=== PATIENT | female | born 1960 | race Native Hawaiian/Other Pacific Islander ===

== ENCOUNTER 2020-12-10 11:08 | Emergency (ER) | payer BC ==
[~2020-12-10] VITALS: Ht 160 cm; Wt 64.6 kg
[2020-12-10] MEDS ORDERED: LISINOPRIL (11:32)
[2020-12-10] MEDS ORDERED: ASPIRIN 81 MG CHEW (CHILDREN'S ASA) PO ONE (11:45)
[2020-12-10] MEDS ORDERED: NS IV 1000 ML 1,000 ML IV SCH (11:45)
--- NOTE | 2020-12-10 11:49 | ED Syncope ---
General Chief Complaint: Neurological Problems Stated Complaint: WEAKNESS Nursing Triage Note: ARRIVED VIA AMB TO ROOM 06 WITH COMPLAINTS OF GENERALIZED WEAKNESS STARTING IN aug. STATES SHE HAS LOST OVER 30# SINCE THEN AND HAS NOT BEEN TRYING. STATES SHE HAS BEEN TO HER DR AND HE TELLS HER TO TAKE ASA. Source of Information: Patient Exam Limitations: No Limitations History of Present Illness Date Seen by Provider: December 10, 2020 Time Seen by Provider: 11:26 Initial Comments Patient presents ER by private conveyance with a friend and chief complaint for the last couple months having some sinking episodes where she did not quite pass out but she just felt incredibly weak and had to stop working and go home and lay down. She is having any chest pain but she does claim that she gets short of breath. She does not have a history of lung disease but she does smoke over a pack of cigarettes per day. She has a family history of coronary disease but none personally. She follows with a primary care doctor in [place] and status was not given any work-up or labs when she brought this up to have instead told to just take Tylenol. She also complains for the past years been having some generalized weakness and near syncopal episodes off and on although not as frequent or pronounced as recently. She states she has had a 30 pound weight loss without trying over the past couple months. She is also been experiencing more low back pain and left arm numbness tingling and weakness with difficulty getting her left arm above the plane of her shoulder without help. She says an MRI was done on her back which demonstrated a thin disc. She is not having any significant pain right now. Allergies and Home Medications Allergies Coded Allergies: No Known Drug Allergies (Unverified , 12/10/20) Patient Home Medication List Home Medication List Reviewed: Yes Review of Systems Constitutional: No chills, No diaphoresis EENTM: No ear discharge, No ear pain Respiratory: No cough, No phlegm; short of breath; No wheezing Cardiovascular: see HPI; No chest pain, No edema, No Hx of Intervention, No palpitations; syncope Gastrointestinal: No abdominal pain, No constipation, No diarrhea, No nausea, No vomiting Genitourinary: No dysuria : No Control/STD Prophylaxis: None Musculoskeletal: No back pain, No joint pain Skin: No pruritus, No rash Psychiatric/Neurological: Denies Anxiety, Denies Depressed All Other Systems Reviewed Negative Unless Noted: Yes Past Jajlish-Lmfqbn-Dvysxm Hx Patient Social History Alcohol Use: Occasionally Uses Smoking Status: Current Everyday Smoker Recent Infectious Disease Expo: No Recent Hopitalizations: No Seasonal Allergies Seasonal Allergies: No Past Medical History Section Respiratory: No Cardiac: Yes Hypertension Neurological: No Genitourinary: No Gastrointestinal: No Musculoskeletal: No Endocrine: No HEENT: No Cancer: No Psychosocial: No Integumentary: No Physical Exam Vital Signs Vital Signs - First Documented 12/10/20 11:10 Temp 36.1 Pulse 65 Resp 16 B/P (MAP) 130/100 (110) Pulse Ox 100 O2 Delivery Room Air Capillary Refill : Less Than 3 Seconds Height, Weight, BMI Height: '" Weight: lbs. oz. kg; 25.00 BMI Method: General Appearance: No Apparent Distress, WD/WN HEENT: PERRL/EOMI, Pharynx Normal; No Moist Mucous Membranes Neck: Full Range of Motion, Normal Inspection Cardiovascular: Regular Rate, Rhythm, No Murmur, Normal Peripheral Pulses Respiratory: Lungs Clear, Normal Breath Sounds, No Accessory Muscle Use, No Respiratory Distress Gastrointestinal: Normal Bowel Sounds, No Organomegaly, Non Tender, Soft Extremities: Normal Capillary Refill, Normal Inspection, Non Tender, No Pedal Edema Neurologic/Psychiatric: Alert, Oriented x3, Normal Mood/Affect, circuit clerk II-XII Norm as Tested, Motor Weakness (Left upper extremity muscles 4 out of 5 motor strength to abduction flexion and rotation. 5 out of 5 right upper extremity motor strength) Cranial Nerves: Normal Hearing, Normal Speech, PERRL Coordination/Gait: Normal Gait Motor/Sensory: No Motor Deficit, No Sensory Deficit Reflexes: 2+ Bicep (R) (Brachioradialis bilateral), 2+ Bicep (L) (Radialis bilateral), 2+ Knee (R), 2+ Knee (L) Skin: Normal Color, Warm/Dry Progress/Results/Core Measures Results/Orders Lab Results Laboratory Tests Test 12/10/20 12:00 12/10/20 12:38 Range/Units White Blood Count 11.2 H 4.3-11.0 10^3/uL Red Blood Count 4.54 3.80-5.11 10^6/uL Hemoglobin 14.0 11.5-16.0 g/dL Hematocrit 42 35-52 % Mean Corpuscular Volume 92 80-99 fL Mean Corpuscular Hemoglobin 31 25-34 pg Mean Corpuscular Hemoglobin Concent 33 32-36 g/dL Red Cell Distribution Width 14.1 10.0-14.5 % Platelet Count 192 130-400 10^3/uL Mean Platelet Volume 11.5 9.0-12.2 fL Immature Granulocyte % (Auto) 1 % Neutrophils (%) (Auto) 57 42-75 % Lymphocytes (%) (Auto) 32 12-44 % Monocytes (%) (Auto) 7 0-12 % Eosinophils (%) (Auto) 3 0-10 % Basophils (%) (Auto) 1 0-10 % Neutrophils # (Auto) 6.3 1.8-7.8 10^3/uL Lymphocytes # (Auto) 3.5 1.0-4.0 10^3/uL Monocytes # (Auto) 0.8 0.0-1.0 10^3/uL Eosinophils # (Auto) 0.4 H 0.0-0.3 10^3/uL Basophils # (Auto) 0.1 0.0-0.1 10^3/uL Immature Granulocyte # (Auto) 0.1 0.0-0.1 10^3/uL Prothrombin Time 13.2 12.2-14.7 SEC INR Comment 1.0 0.8-1.4 Activated Partial Thromboplast Time 37 H 24-35 SEC D-Dimer 0.35 0.00-0.49 UG/ML Sodium Level 140 135-145 MMOL/L Potassium Level 4.2 3.6-5.0 MMOL/L Chloride Level 105 98-107 MMOL/L Carbon Dioxide Level 23 21-32 MMOL/L Anion Gap 12 5-14 MMOL/L Blood Urea Nitrogen 24 H 7-18 MG/DL Creatinine 1.05 0.60-1.30 MG/DL Estimat Glomerular Filtration Rate 53 BUN/Creatinine Ratio 23 Glucose Level 115 H 70-105 MG/DL Calcium Level 9.8 8.5-10.1 MG/DL Corrected Calcium 9.6 8.5-10.1 MG/DL Magnesium Level 2.0 1.6-2.4 MG/DL Total Bilirubin 0.2 0.1-1.0 MG/DL Aspartate Amino Transf (AST/SGOT) 21 5-34 U/L Alanine Aminotransferase (ALT/SGPT) 13 0-55 U/L Alkaline Phosphatase 70 40-136 U/L Myoglobin 42.9 10.0-92.0 NG/ML Troponin I < 0.028 <0.028 NG/ML B-Type Natriuretic Peptide < 10.0 <100.0 PG/ML Total Protein 7.6 6.4-8.2 GM/DL Albumin 4.2 3.2-4.5 GM/DL Urine Color YELLOW Urine Clarity CLEAR Urine pH 6.0 5-9 Urine Specific Alvin 1.025 H 1.016-1.022 Urine Protein NEGATIVE NEGATIVE Urine Glucose (UA) NEGATIVE NEGATIVE Urine Ketones NEGATIVE NEGATIVE Urine Nitrite NEGATIVE NEGATIVE Urine Bilirubin NEGATIVE NEGATIVE Urine Urobilinogen 0.2 < = 1.0 MG/DL Urine Leukocyte Esterase 1+ H NEGATIVE Urine RBC (Auto) TRACE-I NEGATIVE Urine RBC 0-2 /HPF Urine WBC 2-5 /HPF Urine Squamous Epithelial Cells 2-5 /HPF Urine Crystals NONE /LPF Urine Bacteria FEW H /HPF Urine Casts NONE /LPF Urine Mucus NEGATIVE /LPF Urine Culture Indicated YES My Orders Orders - GERRY CASTILLO Ua Culture If Indicated (12/10/20 11:25) Chest Pa/Lat (2 View) (12/10/20 11:39) Ed Iv/Invasive Line Start (12/10/20 11:39) Ns Iv 1000 Ml (Sodium Chloride 0.9%) (12/10/20 11:45) Cbc With Automated Diff (12/10/20 11:39) Magnesium (12/10/20 11:39) Ekg Tracing (12/10/20 11:39) Comprehensive Metabolic Panel (12/10/20 11:39) Myoglobin Serum (12/10/20 11:39) Protime With Inr (12/10/20 11:39) Partial Thromboplastin Time (12/10/20 11:39) O2 (12/10/20 11:39) Monitor-Rhythm Ecg Trace Only (12/10/20 11:39) Ed Iv/Invasive Line Start (12/10/20 11:39) BNP (12/10/20 11:39) Fibrin Degradation Products (12/10/20 11:39) Troponin I (12/10/20 11:39) Aspirin Chewable Tablet (Baby Aspirin Ch (12/10/20 11:45) Orthostatic Vital Signs (Adult (12/10/20 11:39) Urine Culture (12/10/20 12:38) Medications Given in ED Current Medications Medications Dose Ordered Sig/Coleen Route Start Time Stop Time Status Last Admin Dose Admin Aspirin 324 mg ONCE ONCE PO 12/10/20 11:45 12/10/20 11:46 DC 12/10/20 11:56 324 MG Vital Signs/I&O 12/10/20 12/10/20 12/10/20 11:10 12:30 14:09 Temp 36.1 Pulse 65 59 104 61 67 Resp 16 16 B/P (MAP) 130/100 (110) 128/81 (97) 145/87 125/84 (98) 138/83 (101) Pulse Ox 100 98 O2 Delivery Room Air Room Air Blood Pressure Mean: 110 Progress Progress Note #1: Time: 11:51 Progress Note Plan to do a syncopal work-up and we can refer her to an orthopedic surgeon, Dr. Farr for her motor deficit likely related to a cervical radiculopathy in her left arm. With her heavy history of smoking, weight loss and shortness of air a lung cancer made even a pulmonary embolism is a possibility. Atypical angina is also a possibility so we did troponin give her some aspirin as well as EKG and a D-dimer. Progress Note #2: Time: 12:55 Progress Note Riley syncope risk score 0 points. Low risk; 1.9% risk of 30-day serious adverse event. She had no syncopal events while she was here. Her orthostatic vital signs were normal. Plan to have her follow-up outpatient with cardiology to explore possibility of cardiac origin for her symptoms. We have also encouraged her to follow-up with a primary care doctor to discuss other reasons for weight loss, weakness and near syncopal events. Initial ECG Impression Date: December 10, 2020 Initial ECG Impression Time: 11:56 Initial ECG Rate: 68 Initial ECG Rhythm: Normal Sinus Initial ECG Intervals: Normal Initial ECG Impression: Normal Initial ECG Comparisson: No Previous ECG Available Comment Normal sinus rhythm without clinically relevant ST elevation depression. Diagnostic Imaging Diagonstic Imaging: Xray Plain Films/CT/US/NM/MRI: chest (2 view) Comments Unremarkable 2 view chest NAME: PAZ ROUSE [facility] REC#: [id number] PT STATUS: REG ER : 1960 PHYSICIAN: GERRY CASTILLO MD ADMIT DATE: 12/10/20/ER Draft Date of Exam:12/10/20 CHEST PA/LAT (2 VIEW) PA and lateral chest at 12:14. Indication: Exertional dyspnea There are no prior studies available for comparison. The heart size is within normal limits. The lungs are clear. There is no evidence for failure, pneumonia or for pleural effusion. The mediastinum is not widened. The osseous structures are intact. Impression: 1. There is no evidence for active disease. 2. The results were discussed with Gerry Castillo M.D. in the Emergency Room. Dictated on workstation # [id number] Dict: 12/10/20 1213 Trans: 12/10/20 1215 CVB [id number] Interpreted by: COURT MONTE MD Electronically signed by: Reviewed: Reviewed by Me Departure Impression Primary Impression: Cervical radiculopathy, acute Additional Impressions: Near syncope Abnormal weight loss Disposition: 01 HOME, SELF-CARE Condition: Stable Departure-Patient Inst. Decision time for Depature: 13:13 Referrals: JENNIFER BAKER MD [facility] NO,LOCAL PHYSICIAN (PCP) Primary Care Physician KB FARR MD Patient Instructions: Near Fainting (DC), Radiculopathy Add. Discharge Instructions: I Recommend you follow-up with Dr. Baker, cardiology by calling for an appointment in the next 1 to 2 weeks. For the weakness and numbness in your left arm I suspect this is related to a pinched nerve in your neck. This can be further evaluated by Dr. Farr, orthopedic surgery. Call for a follow-up appointment in the next couple weeks. Return to the ER promptly for chest pain, worsening shortness of air or other worrisome symptoms. Follow-up or establish care with a primary care doctor to help you work-up your other symptoms. All discharge instructions reviewed with patient and/or family. Voiced understanding. Copy Copies To 1: JENNIFER BAKER MD [facility]; KB FARR MD, TITUS J December 10, 2020 11:49
[2020-12-10 12:10] LABS: BASOPHILS # (AUTO) 0.1 10^3/uL (0.0-0.1); BASOPHILS % (AUTO) 1 % (0-10); EOSINOPHILS # (AUTO) 0.4 10^3/uL (0.0-0.3); EOSINOPHILS % (AUTO) 3 % (0-10); HEMATOCRIT 42 % (35-52); LYMPHOCYTES # (AUTO) 3.5 10^3/uL (1.0-4.0); LYMPHOCYTES % (AUTO) 32 % (12-44); MEAN CORPUSCULAR HEMOGLOBIN 31 pg (25-34); MEAN CORPUSCULAR HGB CONC 33 g/dL (32-36); MEAN CORPUSCULAR VOLUME 92 fL (80-99); MEAN PLATELET VOLUME 11.5 fL (9.0-12.2); MONOCYTES # (AUTO) 0.8 10^3/uL (0.0-1.0); MONOCYTES % (AUTO) 7 % (0-12); NEUTROPHILS # (AUTO) 6.3 10^3/uL (1.8-7.8); NEUTROPHILS % (AUTO) 57 % (42-75); PLATELET COUNT 192 10^3/uL (130-400); WHITE BLOOD COUNT 11.2 10^3/uL (4.3-11.0)
--- NOTE | 2020-12-10 12:15 | Diagnostic Imaging Report ---
PA and lateral chest at 12:14. Indication: Exertional dyspnea There are no prior studies available for comparison. The heart size is within normal limits. The lungs are clear. There is no evidence for failure, pneumonia or for pleural effusion. The mediastinum is not widened. The osseous structures are intact. Impression: 1. There is no evidence for active disease. 2. The results were discussed with Gerry Castillo M.D. in the Emergency Room. Dictated by: Dictated on workstation # [id number]
[2020-12-10 12:23] LABS: ALBUMIN 4.2 GM/DL (3.2-4.5)
[2020-12-10 12:24] LABS: POTASSIUM 4.2 MMOL/L (3.6-5.0)
[2020-12-10 12:25] LABS: CALCIUM 9.8 MG/DL (8.5-10.1)
[2020-12-10 12:26] LABS: PROTHROMBIN TIME PATIENT 13.2 SEC (12.2-14.7); TOTAL PROTEIN 7.6 GM/DL (6.4-8.2)
[2020-12-10 12:28] LABS: BILIRUBIN,TOTAL 0.2 MG/DL (0.1-1.0)
[2020-12-10 12:30] VITALS: BP_SYST 125; BP_SYST 128; BP_SYST 138; BP_DIAS 81; BP_DIAS 83; BP_DIAS 84
[2020-12-10 12:30] LABS: CREATININE SERUM 1.05 MG/DL (0.60-1.30)
[2020-12-10 12:42] LABS: BILIRUBIN,URINE NEGATIVE (NEGATIVE); CLARITY,URINE CLEAR; COLOR,URINE YELLOW; GLUCOSE, URINE (UA) NEGATIVE (NEGATIVE); KETONES,URINE NEGATIVE (NEGATIVE); LEUKOCYTE ESTERASE ,URINE 1+ (NEGATIVE); NITRITE,URINE NEGATIVE (NEGATIVE); PROTEIN,URINE NEGATIVE (NEGATIVE)
[2020-12-10 13:05] LABS: BACTERIA,URINE FEW /HPF; RBC,URINE 0-2 /HPF
[2020-12-10 14:09] VITALS: BP 145/87
== END 2020-12-10 14:09 | disposition home or self-care (01) ==
LOC: ER 11:11
DX: M54.12 Radiculopathy, cervical region (principal); R55 Syncope and collapse; R63.4 Abnormal weight loss; I10 Essential (primary) hypertension; F17.200 Nicotine dependence, unspecified, uncomplicated; Z68.25 Body mass index [BMI] 25.0-25.9, adult
CPT/HCPCS: 36415; 71046; 80053; 81000; 83735; 83874; 83880; 84484; 85025; 85379; 85610; 85730; 87077; 87088; 93005

== ENCOUNTER → 2021-01-31 | Outpatient (CLI) | payer SELFPAY ==
[~2021-01-31] MED LIST: LISINOPRIL
== END ==
LOC: CARD 14:00
PROVIDERS: ATTEND Internal Medicine Cardiovascular Disease
DX: R06.09 Other forms of dyspnea (principal)
CPT/HCPCS: 93306

== ENCOUNTER 2021-02-08 12:00 | Outpatient (RCR) | payer SELFPAY ==
--- NOTE | 2021-02-20 08:49 | Holter Monitor ---
HOLTER MONITOR DATE OF PROCEDURE: 02/08/2021-02/15/2021. INDICATION: Dyspnea on exertion. PROCEDURE: A 7-day Holter monitor was obtained for a total of 6 days and 22 hours. The study quality is adequate. RESULTS: 1. Baseline sinus rhythm with an average heart rate of 76 bpm, ranging from 49- 160 bpm. 2. There were rare (61), isolated premature supraventricular complexes. 3. There were rare (2), isolated premature ventricular complexes. 4. There was no evidence of atrial fibrillation. 5. There were no pauses exceeding 2 seconds in duration. 6. There were 9 patient events that correlated to sinus rhythm during 6 events and sinus tachycardia during 3 events with heart rates ranging from 79-110 bpm with no arrhythmias. IMPRESSION: 1. This is a 7-day extended Holter monitor report. 2. Baseline sinus rhythm with an average heart rate of 76 bpm, ranging from 49- 160 bpm with rare, isolated premature supraventricular and premature ventricular complexes. 3. There were 9 patient events that correlated to sinus rhythm during 6 events and sinus tachycardia during 3 events with heart rates ranging from 79-110 bpm with no arrhythmias. YASMIN HARRIS JR, MD Feb 20, 2021 08:49
== END 2021-05-09 | disposition home or self-care (01) ==
LOC: CARD 12:00
PROVIDERS: ATTEND Internal Medicine Cardiovascular Disease
DX: R06.09 Other forms of dyspnea (principal)
CPT/HCPCS: 93242